=== PATIENT | female | born 1995 | race Caucasian/White ===

== ENCOUNTER 2016-11-20 17:03 | Observation (INO) ==
[2016-11-20 17:48] LABS: Bilirubin,Urine Negative (Negative); Blood,Urine Negative (Negative); Clarity,Urine Clear (Clear); Color,Urine Yellow (Yellow); Glucose,Urine (UA) Normal (Normal); Ketones,Urine Negative (Negative); Leukocyte Esterase,Urine Negative (Negative); Nitrite,Urine Negative (Negative); Protein,Urine Negative (Neg-Trace); Specific Gravity,Urine 1.006 (1.010-1.025); Urobilinogen,Urine Normal (Normal)
[2016-11-20 18:02] LABS: Amphetamine Screen,Urine Negative ng/mL (Cutoff=1000); Barbiturate Screen,Urine Negative ng/mL (Cutoff=200); Benzodiazepines Screen,Urine Negative ng/mL (Cutoff=200); Cannabinoid Screen,Urine Negative ng/mL (Cutoff = 50); Cocaine Screen,Urine Negative ng/mL (Cutoff= 300); Opiate Screen,Urine Negative ng/mL (Cutoff=300); Phencyclidine Screen,Urine Negative ng/mL (Cutoff=25)
[2016-11-20 18:47] LABS: Candida DNA Not Detected (Not Detect); Gardnerella DNA ***DETECTED*** (Not Detect); Trichomonas DNA Not Detected (Not Detect)
--- NOTE | 2016-11-20 18:54 | OB/GYN Progress Note ---
Date of Encounter: 11/20/16 Time of Encounter: 18:52 - Assessment and Plan (1) 37 weeks gestation of Status: Acute Patient is a at 37 weeks who presents with vaginal discharge and pain. She has irregular contractions on the monitor. She was 2cm, 70% and -1 station on exam with no change control coordinator an hour. Patient will be discharge home to follow up with her primary care CHARGE ENTRY SPECIALIST. She has an appointment scheduled with Dr. Deluna 11/23/13 at 1:45pm (2) Gardnerella vaginalis infection Status: Acute Patient with Gardnerella on vaginosis panel. Given prescription for Flagyl 500mg BID for 7 days. (3) Anemia affecting Status: Acute On review of previous records, patient has significant anemia. Will give patient prescription for iron and vitamins. (4) Limited care in third trimester Status: Acute Patient with limited care. Her records have been transferred to the [facility] office and she has follow up scheduled with our office in the next 3 days. (5) Back pain affecting in third trimester Status: Acute Subjective - Subjective Principal diagnosis: 37 weeks gestation with vaginal discharge Interval history: Ms Marquez is a 21yo female a 37 weeks by US done here at 29 weeks + 6 days. She was brought in by EMS for evaluation. Patient reports that she has had brown, foul smelling discharge for the last 2 days with constant low back and pelvic pain. She reports good movement. She denies any vaginal bleeding or fluid loss. Patient denies headache, vision changes, chest pain, nausea/vomiting, or changes in bowel or bladder. She reports last intercourse 3 days ago. Patient reports 3 previous pregnancies, all term vaginal deliveries. She has not been followed by [facility] and reports that she was following with a doctor in [place]. However, on chart review, patient was seen here for eval in September 2016. At that time she was unable to accurately tell dates and a formal US was done for dating at that time. She was also positive for opiates on that visit. It is unknown the amount of care she has had up to this point. She does smoke but currently denies any alcohol or drug use. I examined this patient and my medical decision-making was reviewed with the [facility] SEW[facility] HAND/PA/Advanced Practice Nurse/Resident Physician. I agree with the documented findings, disposition and treatment plan as described except to the extent set forth below. records reviewed from [facility]. Pt is AB+ Antepartum ROS: movement normal, contractions, other (vaginal discharge) Objective - Vital Signs Vital Signs: Intake and Output 11/20/16 11/20/16 11/20/16 07:59 15:59 23:59 Other: Weight 69.4 kg Patient Weight 11/20/16 23:59 Weight 69.4 kg - Exam FHR: auscultation normal Auscultation: bilateral: normal Abdomen: Present: normal appearance, soft, gravid Cervical dilation: 2cm Cervix effacement: 70% station: -1 station - Labs Labs: Abnormal lab results Ur Specific [place] 1.006 (1.010-1.025) L 11/20/16 17:15 Gardnerella DNA Probe DETECTED (Not Detect) A 11/20/16 17:15
== END 2016-11-20 19:25 | disposition home or self-care (01) ==
LOC: 1NENULAB
PROVIDERS: ADMIT Obstetrics & Gynecology; ATTEND Obstetrics & Gynecology

== ENCOUNTER 2016-12-06 11:59 | Inpatient (IN) ==
--- NOTE | 2016-12-06 12:19 | OB/GYN History & Physical ---
Date of Encounter: 12/06/16 Time of Encounter: 12:10 Assessment and Plan (1) Elective induction of labor planned Current visit: Yes Status: Acute -Patient has had previous induction without complication Plan -Start pitocin, bedrest, LR, (2) Dental abscess Current visit: Yes Status: Acute -L dental procedure to drain abscess -Currently on amoxicillin day 4 and Tylenol 3 History of Present Illness Chief complaint: induction of labor HPI: Ms. Marquez is a 21 year old female , 40w3d, GBS negative, presents for induction. She states that she has had an uneventful , she has been induced before, without complication. SHe denies any headache, blurry vision, chest pain, SOB, abdominal pain, vaginal bleeding and discharge. She is resting comfortably in bed. She currently is on amoxicillin and Tylenol 3 for dental pain/abscess. Blood type:AB+ Past Med Surg Social Fam HX - Past Medical History Medical history: no medical history Psychiatric history: anxiety, depression - Past Surgical History Surgical History: appendectomy, herniorrhaphy - Social History Smoking Status: Current every day smoker Smokeless Tobacco Status: No Alcohol use: none Drug use: none - Family History Mother Adopted: No Family Member Ethnicity: Non- Living Status: Still Living Hx Family Cardiac Disorders: Yes (hypertension) Hx Family Respiratory Disorders: No Hx Family Cancer: Yes (brain tumor cancer?) Hx Family GI Disorders: No Hx Family Endocrine Disorder: Yes Hx Family Neuromuscular Disorders: No Hx Family Neurologic Disorders: No Hx Family HEENT Disorders: No Hx Family Autoimmune Disorders: No Obstetrical History - Pregnancies : 4 Para: 3 Livin Medications and Allergies Vitamins 1 tab PO DAILY 11/20/16 [History] Tylenol w/Codeine #3 1 tab PO Q6H PRN 11/20/16 [History] Amoxicillin [Amoxicillin] 1 tab PO TID 12/06/16 [History] Ferrous Sulfate [Iron] 1 tab PO DAILY 12/06/16 [History] Allergies No Known Allergies Allergy (Verified 12/06/16 12:37) Review of System OB - Cardiovascular Cardiovascular: as per HPI Exam - Constitutional Constitutional: well developed, well nourished, no acute distress, average body habitus - HEENT HEENT: Normocephaly, Mucus Membranes Moist - Cardiovascular Cardiovascular exam: RRR - Abdomen Abdomen: Present: non tender - Cervix Dilation: 3 Results All other labs normal.
[2016-12-06] MEDS ORDERED: *HR* FentaNYL (PF) 100 MCG/2 ML VIAL IVP PRN (12:56)
[2016-12-06] MEDS ORDERED: Famotidine 20 MG/2 ML VIAL IVP PRN (12:56)
[2016-12-06] MEDS ORDERED: Naloxone 0.4 MG/ML INJ IVP PRN (12:56)
[2016-12-06] MEDS ORDERED: Ondansetron 4 MG/2 ML VIAL IVP PRN (12:56)
[2016-12-06] MEDS ORDERED: Ringers Solution, Lactated 1,000 ML IVC SCH (13:00)
[2016-12-06] MEDS ORDERED: miSOPROStol 25 MCG TABLET VG ONE (13:16)
[2016-12-06] MEDS ORDERED: Oxytocin 20 units/ LR 1000 mL 20 UNIT/1,000 ML BAG IVC SCH (13:23)
[2016-12-06 13:39] LABS: Basophils % 0.3 %; Eosinophils # 0.1 K/mcL (0.0-0.6); Eosinophils % 0.9 %; Hematocrit 28.9 % (35.3-44.9); Hemoglobin 9.1 g/dL (11.5-15.4); Lymphocytes # 2.5 K/mcL (0.6-4.6); Lymphocytes % 20.3 %; Mean Corpuscular HGB Conc 31.5 g/dL (31.6-35.5); Mean Corpuscular Hemoglobin 25.3 pg (28.0-33.3); Mean Corpuscular Volume 80.5 fL (83.0-100.0); Mean Platelet Volume 10.5 fL (9.4-12.4); Monocytes % 7.8 %; Neutrophils # 8.4 K/mcL (1.6-8.9); Platelet Count 355 K/mcL (140-400); Red Blood Count 3.59 M/mcL (3.82-4.97); Red Cell Distribution Width 17.5 % (11.5-14.5); Segmented Neutrophils % 68.7 %
[2016-12-06] MEDS ORDERED: EPHEDrine 50 MG/ML VIAL IVP PRN (16:05)
[2016-12-06] MEDS ORDERED: Ringers Solution, Lactated 500 ML IVC ONE (16:05)
[2016-12-06] MEDS ORDERED: Epidural Premix (fent/bupiv) 110 ML EP ONE (16:08)
[2016-12-06] MEDS ORDERED: Epidural Premix (fent/bupiv) 110 ML EP SCH (16:15)
--- NOTE | 2016-12-06 16:48 | Anesthesia Evaluation PreOp ---
Date of Encounter: 12/06/16 Time of Encounter: 16:47 - Past History Planned Operation: JOEL Cardiac History: Denies any Significant Hx Pulmonary History: Smoker DATA SCIENCES DIRECTOR History: Denies Any Significant HX Other Medical History: Denies Any Significant HX Anesthesia History: No Prior Anesthetic Complications, Past Anesthesia : Yes Alcohol Use: none Drug use: none Medications and Allergies Vitamins 1 tab PO DAILY 11/20/16 [History] Tylenol w/Codeine #3 1 tab PO Q6H PRN 11/20/16 [History] Amoxicillin [Amoxicillin] 1 tab PO TID 12/06/16 [History] Ferrous Sulfate [Iron] 1 tab PO DAILY 12/06/16 [History] Allergies No Known Allergies Allergy (Verified 12/06/16 12:37) - Meds/Allergy Pre-op Review Medications Reviewed: Yes Allergies Reviewed: Yes Beta Blockers on Current Med List: No Anesthesia Results - Labs 12/06/16 13:05 Anesthesia Exam 117/69, hr 92 Height: 1.52m Weight: 76kg NPO (# of Hours): 2 Pain Scale: 9 Pain Scale Used: Numeric (1 - 10) - HEENT Pupil (Motor): Pupils equal Mallampati: II Teeth: Normal Oral Opening: Greater than 3 - DATA SCIENCES DIRECTOR LOC: Oriented DATA SCIENCES DIRECTOR Motor: Normal RUE, Normal LUE, Normal RLE, Normal LLE, Normal Face DATA SCIENCES DIRECTOR Sensory: Normal: RUE, LUE, RLE, LLE, Face - Cardiac Rhythm: Regular Murmur: None JVD: No Carotid Bruit: No - Pulmonary Breath Sounds: bilateral Clear Respiratory Effort: Symmetrical Anesthesia Assess/Plan ASA Score: 2 Modified [place] Scale for Level of Consciousness: Cooperative, oriented, and tranquil Anesthetic Plan: General (plan b), Regional (plan a) Autologous Blood: Yes Monitoring Plan: Standard Monitors
--- NOTE | 2016-12-06 16:51 | Anesthesia Procedures ---
Date of Encounter: 12/06/16 Time of Encounter: 16:49 Procedures: Anesthesia - Epidural/Spinal Patient ID/Chart reviewed: Yes Patient examined: Yes OB Eval: Gestational age: 37 OB Eval: : 4 OB Eval: Hx Para: 3 OB Eval: Dilated at (cm): 4 OB Eval: Contractions: Non-stressed pattern Consent Obtained: Yes Supplemental Oxygen: None/Room Air Site Prep: Aseptic Technique, Sterile prep and drape, Povidone-Iodine 1% Patient position: upright Local Anesthetic: Lidocaine 1% Amount of Local Anesthetic used: 3 Touhy Needle Gauge: 18 Touhy Needle Depth (cm): 6 Catheter Depth at Skin (cm): 15 Test Dose (1.5% Lido + Epi): Volume given (mls): 5 Test Dose Result: Negative Loading Dose: Other: 8ml of epidural pharm bag Loading Dose Administered: Thru Catheter Infusion Med: 0.125% Bupivacaine w/ 2 mcg/ml Fentanyl Infusion Rate (mls/hr): 12 ([id number]) Catheter Secured in Place: Tegaderm, Tape Interspace Used: L4-L5 Loss of Resistance (CLARIBEL): Yes Blood: No CSF: No Paresthesia: No Procedure: pt tolerated procedure well. no complications. vss. 136/74 hr 86, 121/71, hr 72 , 123/60 hr 86, 128/74 hr 83
--- NOTE | 2016-12-06 17:07 | OB Labor Progress Note ---
Date of Encounter: 12/06/16 Time of Encounter: 17:16 Labor Progress Note - Subjective Subjective: Patient states that she feels a little bit more tired now compared to earlier. Otherwise, she feels the same as before and resting comfortably in bed with her family present in the room. - Vital Signs Vital Signs: BP 128/66 Mom HR:86 - Cervix Cervix: 4cm, effacement 75% - Heart Tones Heart Tones: 136 - [employer] [place] [employer] [place]: 10 - Interventions Interventions: None - Plan Plan: -Continue with current management -Consider increasing pitocin if no change within 1.5 hours
--- NOTE | 2016-12-06 20:18 | OB Labor Progress Note ---
Date of Encounter: 12/06/16 Time of Encounter: 20:19 Labor Progress Note - Subjective Subjective: patient is s/p epidural, feeling some of her ctxs, AROM'ed, pitocin @ 8 - Vital Signs Vital Signs: VSS - Cervix Cervix: 4cm - Heart Tones Heart Tones: 140/mod dai/+accels, no decels - Plan Plan: allow labor to progress, cont monitoring strip
--- NOTE | 2016-12-06 21:53 | OB Labor Progress Note ---
Date of Encounter: 12/06/16 Time of Encounter: 21:53 Labor Progress Note - Subjective Subjective: patient feels pressure - Vital Signs Vital Signs: VSS - Cervix Cervix: fully dilated - Plan Plan: will start pushing, FHT CAT 1
--- NOTE | 2016-12-06 22:24 | OB/GYN Procedure Note ---
Delivery - Delivery Date: 12/06/16 Provider: Cirilo Deluna Intrapartum events: none Delivery induction: oxytocin Delivery augmentation: rupture of membranes Delivery monitor: external FHT Anesthesia: epidural Estimated Blood Loss: 150 - Infant (s) A Infant Delivery Date: 12/06/16 Infant Delivery Time: 22:05 Presentation: vertex Position: COLLIN Route of delivery: Gender: Female Viability: Viable Pounds: 7 Ounces: 5 Weight Gram: 3.3 kg at 1 minute: 8 at 5 mins: 9 Shoulder Dystocia: not encountered Placenta: spontaneous - Repair Episiotomy: none Laceration Description: Periurethral - Complications Delivery complications: none - Disposition Mom disposition: stable in LDR [place] disposition: stable in LDR - Comments Comments: 21 y/o now delivered a viable female infant weight 3325g @ 2205hrs, , APGARs 9/9, placenta delivered @ 2208hrs, EBL 150cc, delivered COLLIN, L periurethral tear repaired with 3-0 vicryl. mother and stable.
[2016-12-06] MEDS ORDERED: Oxytocin 20 units/ LR 1000 mL 20 UNIT/1,000 ML BAG IVC ONE (22:29)
[2016-12-06] MEDS ORDERED: Measles/Mumps/Rubella Vacc 0.5 ML VIAL SQ PRN (22:29)
[2016-12-06] MEDS ORDERED: Oxytocin 20 units/ LR 1000 mL 20 UNIT/1,000 ML BAG IV SCH (22:30)
[2016-12-06] MEDS: Ibuprofen 600 MG TABLET PO PRN (22:53)
[2016-12-07 04:08] LABS: Basophils % 0.2 %; Eosinophils # 0.1 K/mcL (0.0-0.6); Eosinophils % 0.5 %; Hemoglobin 7.7 g/dL (11.5-15.4); Immature Granulocytes % 1.8 % (0-4); Lymphocytes % 15.2 %; Mean Corpuscular HGB Conc 32.1 g/dL (31.6-35.5); Mean Corpuscular Hemoglobin 25.7 pg (28.0-33.3); Mean Platelet Volume 10.7 fL (9.4-12.4); Monocytes # 1.2 K/mcL (0.0-1.3); Monocytes % 6.1 %; Neutrophils # 14.9 K/mcL (1.6-8.9); Nucleated Red Blood Cells 0.1 /100 WBC (0); Platelet Count 296 K/mcL (140-400); Red Cell Distribution Width 17.2 % (11.5-14.5); Segmented Neutrophils % 76.2 %
[2016-12-07] MEDS: Prenatal Vit/FA 1 EACH TABLET PO SCH (07:59)
[2016-12-07] MEDS: Ibuprofen 600 MG TABLET PO PRN ×2 (07:59→15:51)
--- NOTE | 2016-12-07 08:45 | OB/GYN Progress Note ---
Date of Encounter: 12/07/16 Time of Encounter: 08:43 - Assessment and Plan (1) Vaginal delivery Current Visit: Yes Status: Acute Continue routine care. Anticipate DC tomorrow. on 3 day hold for maternal narcotic use. Subjective - Subjective Principal diagnosis: Interval history: Pt states dong well, but having low back pain. Recommended taking mortin as ordered. Bleeding has slowed down. Mood good. Bottle feeding. Patient reports: appetite normal [place]: doing well Objective - Latest Vital Signs Latest vital signs: Vital Signs Temp Pulse Resp BP Pulse Ox 12/07/16 07:41 97.8 F 67 14 128/78 99 12/07/16 02:45 98.2 F 76 14 125/73 98 12/07/16 01:35 98.1 F 90 14 122/76 98 12/07/16 00:30 98.2 F 94 18 135/84 96 Intake and Output 12/06/16 12/07/16 12/07/16 23:59 07:59 15:59 Intake Total 1000 / 1000 Output Total 1400 / 1400 Balance -400 / -400 Intake: Intake, Autotransfusion 1000 / 1000 Amount Output: Urine 550 / 550 Estimated Blood Loss 150 / 150 Catheter 700 / 700 - Exam Lungs: bilateral: normal Chest: Normal S1, Normal S2 Extremities: Present: normal Abdomen: Present: normal appearance Uterus: Present: normal Uterus Position: At Umbilicus - Labs Labs: Laboratory Results - last 24 hr 12/06/16 12/06/16 12/07/16 13:05 13:05 03:44 WBC 12.2 H 19.6 H D RBC 3.59 L 3.00 L Hgb 9.1 L 7.7 L Hct 28.9 L 24.0 L MCV 80.5 L 80.0 L MCH 25.3 L 25.7 L MCHC 31.5 L 32.1 RDW 17.5 H 17.2 H Plt Count 355 296 MPV 10.5 10.7 Immature Gran % 2.0 1.8 Seg Neutrophils % 68.7 76.2 Lymphocytes % 20.3 15.2 Monocytes % 7.8 6.1 Eosinophils % 0.9 0.5 Basophils % 0.3 0.2 Neutrophils # 8.4 14.9 H Lymphocytes # 2.5 3.0 Monocytes # 1.0 1.2 Eosinophils # 0.1 0.1 Basophils # 0.0 0.0 Nucleated RBCs/100 WBC 0.1 H Blood Type AB POSITIVE Antibody Screen NEGATIVE
[2016-12-07] MEDS ORDERED: Benzocaine/Menthol 56 GM AEROSOL SPRAY TP PRN (10:21)
[2016-12-08 08:20] VITALS: BP 131/88
[2016-12-08] MEDS: Prenatal Vit/FA 1 EACH TABLET PO SCH (08:42)
[2016-12-08] MEDS: Ibuprofen 600 MG TABLET PO PRN (08:42)
--- NOTE | 2016-12-08 09:34 | Discharge Summary ---
Date of Encounter: 12/08/16 Time of Encounter: 09:32 - Discharge Diagnosis (1) Vaginal delivery Priority: Primary Status: Acute Comments: Pt meeting milestones. Appropriate for discharge - Discharge Medications Prescriptions: Ibuprofen [Motrin] 600 mg PO Q6HR PRN #60 tablet PRN Reason: Cramping Docusate [Colace] 100 mg PO BID #60 capsule Ferrous Sulfate 325 mg PO BID #60 tablet Home Medications: Vitamins 1 tab PO DAILY 11/20/16 [History] Amoxicillin 1 tab PO TID 12/06/16 [History] Benzocaine/Menthol [place] [Dermoplast [place]] 1 appl TP QID PRN #0 aerosol [Rx] Docusate [Colace] 100 mg PO BID #60 capsule 12/08/16 [Rx] Ferrous Sulfate 325 mg PO BID #60 tablet 12/08/16 [Rx] Ibuprofen [Motrin] 600 mg PO Q6HR PRN #60 tablet 12/08/16 [Rx] Vit/FA 1 each PO DAILY tablet 12/08/16 [Rx] Allergies/Adverse Reactions: Allergies No Known Allergies Allergy (Verified 12/06/16 12:37) Data Procedures and tests throughout hospitalization: Laboratory Tests 12/06/16 12/06/16 12/07/16 13:05 13:05 03:44 WBC 12.2 H 19.6 H D RBC 3.59 L 3.00 L Hgb 9.1 L 7.7 L Hct 28.9 L 24.0 L MCV 80.5 L 80.0 L MCH 25.3 L 25.7 L MCHC 31.5 L 32.1 RDW 17.5 H 17.2 H Plt Count 355 296 MPV 10.5 10.7 Immature Gran % 2.0 1.8 Seg Neutrophils % 68.7 76.2 Lymphocytes % 20.3 15.2 Monocytes % 7.8 6.1 Eosinophils % 0.9 0.5 Basophils % 0.3 0.2 Neutrophils # 8.4 14.9 H Lymphocytes # 2.5 3.0 Monocytes # 1.0 1.2 Eosinophils # 0.1 0.1 Basophils # 0.0 0.0 Nucleated RBCs/100 WBC 0.1 H Blood Type AB POSITIVE Antibody Screen NEGATIVE Date of admission: 12/06/16 11:59 Primary care physician: PCP NO Consults: 12/06/16 13:01 Consult to Configuration Manager (W&C) [CONS] Routine Reason For Exam: Reason for SW Consult: Hx opitate use, no custody of other children Discharging clinician: Nika Hennessy Anticipated date of discharge: 12/08/16 - Patient Status Disposition: Home, Self-Care Condition: Good Functional capacity at discharge: independent ambulation Overall status at discharge: patient is back to baseline - Discharge Instructions Follow Up With: NO,PCP [Primary Care Provider] - Cirilo Deluna MD [Partnered Physician] - Additional Instructions: Perineal Care: Always wipe front to back Change your pad frequently Use your robert bottle with warm water and spray front to back Do not douche, use tampons, have sexual intercourse or put anything in your vagina for 4-6 weeks after delivery Bleeding: Vaginal bleeding can last up to 6 weeks Your menstrual period may return as early as 6 weeks after you are discharged from the hospital Nadya/Stitches Care: Vaginal Delivery Vaginal stitches will dissolve within 4-6 weeks Follow perineal care instructions Activity: Rest frequently Do not lift anything heavier than a gallon of milk, up to 10-15 pounds No driving for 1-2 weeks for Vaginal delivery No driving for 2-4 weeks for delivery Take stairs slowly, one at a time Gradually increase your daily activity until you are back to your normal routine Do not exercise until you have had your follow-up appointment Bathing: Take a shower daily Do not take a tub bath for the first 4 weeks Diet: Drink plenty of water and fruit juices Eat a well-balanced diet with foods high in fiber such as fruits and vegetables Depression: Your hormones have a major impact on your feelings and emotions. Hormone imbalance may cause changes in your mood, creating unfamiliar thoughts and actions. Support is available to help you understand and cope with these feelings and mood changes. If you answer yes to any of the following questions, please call your health care provider: Are you having trouble sleeping? Are you feeling isolated? Have you lost your appetite? Are you having thoughts of hurting yourself or others? WARNING SIGNS: Heavy bleeding from the vagina (blood is bright red and soaks a sanitary pad in an hour or less.) Passing a blood clot larger than your fist Discharge from the vagina that has a bad odor Temperature over 100.4 F, or if you feel cold and have chills An episiotomy site that is warm, swollen or oozing. Use a mirror if needed Urination (pee) that is painful, very red and swollen or leaking fluid An incision that is painful, very red and swollen and leaking fluid An incision that has come open Breasts that are painful or full with flu like symptoms Redness, warmth or swelling in the calf of your leg Trouble breathing, dizziness, visual disturbance or faintness *Notify your health care provider immediately or go to the nearest Emergency Room if you experience any of the above signs.* To contact the nurses station 24 hours a day, For non-urgent, routine questions, please call the office at - Diet and Activity Activity: resume usual activities as tolerated Diet: regular diet Hospital Course Reason for admission: active labor Delivery: Episiotomy: none Laceration: 1st degree (periuretheral) Other procedures: none complications: none Discharge diagnosis: IUP at term delivered baby: female Hospital course: Delivery - Delivery Date: 12/06/16 Provider: Cirilo Deluna Intrapartum events: none Delivery induction: oxytocin Delivery augmentation: rupture of membranes Delivery monitor: external FHT Anesthesia: epidural Estimated Blood Loss: 150 - Infant (s) Infant A Infant Delivery Date: 12/06/16 Infant Delivery Time: 22:05 Presentation: vertex Position: COLLIN Route of delivery: Gender: Female Viability: Viable Pounds: 7 Ounces: 5 Weight Gram: 3.3 kg at 1 minute: 8 at 5 mins: 9 Shoulder Dystocia: not encountered Placenta: spontaneous - Repair Episiotomy: none Laceration Description: Periurethral - Complications Delivery complications: none - Disposition Mom disposition: stable in LDR disposition: stable in LDR - Comments Comments: 21 y/o now delivered a viable female weight 3325g @ 2205hrs, , APGARs 9/9, placenta delivered @ 2208hrs, EBL 150cc, delivered COLLIN, L periurethral tear repaired with 3-0 vicryl. mother and infant stable. Pt stable for discharge. Infant remains for narcotic withdraw observation. Time Attestation: Total time spent providing and/or coordinating discharge services: Time Spent: Less than 30 minutes Exam - Constitutional Vitals: Temp Pulse Resp BP Pulse Ox 98.4 F 88 16 131/88 99 12/08/16 08:19 12/08/16 08:19 12/08/16 08:19 12/08/16 08:19 12/07/16 20:40 General appearance IM: A&O X 3 - Respiratory Respiratory exam: Present: CTAB - Cardiovascular Cardiovascular exam IM: Present: RRR, +S1, +S2 - GI/Abdominal GI/Abdominal exam IM: soft - Uterine Tone: Firm - Extremities Exam Extremities exam IM: Present: normal inspection - Neurological Exam Neurological exam: normal gait, oriented X3 - Psychiatric Additional comments: reports good mood
== END 2016-12-08 10:19 | disposition home or self-care (01) | DRG 560 ==
LOC: 1NENULAB 11:59 → 1NENUOBS 12-07 00:28
PROVIDERS: ADMIT Student in an Organized Health Care Education/Training Program; ATTEND Student in an Organized Health Care Education/Training Program